=== PATIENT | female | born 1990 | race Caucasian/White ===

== ENCOUNTER 2020-09-13 09:48 | Observation (INO) ==
--- NOTE | 2020-09-05 13:05 | PAT Medication Instructions ---
Medication Instructions Date of Service September 05, 2020 Home Medications fluoxetine 20 mg PO QPM cholecalciferol (vitamin D3) [Vitamin D3] 2,000 unit PO Q2D cyanocobalamin (vitamin B-12) [Vitamin B-12] 1,000 mcg PO Q2D lamotrigine 200 mg PO QPM etonogestrel 68 mg subdermal implant 1 implant SUBDERMAL UD folic acid 1 mg tablet 1 mg PO QPM Continue as directed etonogestrel 68 mg subdermal implant 1 implant SUBDERMAL UD DO NOT take the morning of surgery cholecalciferol (vitamin D3) [Vitamin D3] 2,000 unit PO Q2D cyanocobalamin (vitamin B-12) [Vitamin B-12] 1,000 mcg PO Q2D Take evening before surgery fluoxetine 20 mg PO QPM lamotrigine 200 mg PO QPM folic acid 1 mg tablet 1 mg PO QPM NOTHING TO EAT OR DRINK AFTER MIDNIGHT. Other Notes If you have any questions please call us at [phone] or [phone] or [phone] or [phone]
--- NOTE | 2020-09-06 12:21 | Anesthesiology Consultation ---
Date of Service September 06, 2020 Assessment & Plan (1) Encounter for pre-operative examination: COVID Status: As of 09/06 assessment, patient denies travel to endemic area, known exposure/sick contacts, or symptoms of COVID19. Patient advised to adhere to social distancing guidelines, wear a mask in public and avoid large crowds or unnecessary travel in the 2 weeks leading up to surgery. Preoperative COVID19 testing to be completed prior to surgery per surgeon's arrangements. Patient encouraged to be extra cautious/conscientious with COVID precautions between COVID testing and surgery. HCG AM DOS Chart Review Chart Review: Acceptable Risk for Surgery and Patient seen in Pre Admission Testing Teaching & Discussion Instructed NPO after midnight before surgery, except medications with 15 cc of water. Medication instructions provided according to the PAT guidelines. History Surgery Operation Date: 09/13/20 10:45 Proposed Procedures p Laparoscopic Splenectomy, Possible Open Splenectomy - Andrew Ang DO, FACS Height/Weight Height: 5 ft 6 in Weight: 154.5 kg Allergies Allergy/AdvReac Type Severity Reaction Status Date / Time No Known Drug Allergies Allergy Unknown . Verified 08/30/20 15:44 Medications Home Medications Medication Instructions Recorded Confirmed Last Taken fluoxetine 20 mg PO QPM 01/15/18 08/30/20 07/12/20 cholecalciferol (vitamin D3) 2,000 unit PO Q2D 07/13/20 08/30/20 07/12/20 [Vitamin D3] cyanocobalamin (vitamin B-12) 1,000 mcg PO Q2D 07/13/20 08/30/20 07/12/20 [Vitamin B-12] lamotrigine 200 mg PO QPM 07/13/20 08/30/20 07/12/20 etonogestrel 68 mg subdermal 1 implant SUBDERMAL UD 08/17/20 08/30/20 Unknown implant folic acid 1 mg tablet 1 mg PO QPM 08/17/20 08/30/20 Unknown Past Medical History Medical History Anemia Anxiety and depression Enlarged liver Hereditary spherocytosis Personality disorder Restless leg syndrome Splenomegaly Temporomandibular joint disorder No locking, but gets sore and painful to fully open jaw when inflamed. Exercise / Class Metabolic Activity III < 4 Walking/Shop/Light housework (Denies SOB or CP with ambulation on one level, mild MORENO with 1 FOS) Past Family History Family History Grandfather Heart disease Hypertension Grandmother Diabetes Heart disease Hypertension Grandfather (Maternal) Family history of diabetes mellitus Grandmother (Maternal) Family history of diabetes mellitus Other No family history of adverse response to anesthesia Past Surgical History Surgical History History of appendectomy History of cholecystectomy History of ERCP History of myringotomy Past Anesthesia History No Hx of Anesthesia Complications and No Family Hx of Anesthesia Complications History of PONV No Hx of PONV and No Hx of Motion Sickness Social History Smoking Status: Never smoker Do You Dip or Chew Tobacco: No Hx Alcohol Use: Yes Alcohol type: beer alcohol intake frequency: a few times a month Hx Substance Use: No substance use type: does not use Review of Systems Pt denies any recent chest pain, shortness of breath, palpitations, cough, fever, URI, or uncontrolled acid reflux. Physical Exam Vital Signs BP: 129/75 P: 83bpm SPO2: 100% RA T: 98.7 F R: 12 Constitutional + morbidly obese ENMT Mouth: no dental restorations, no chipped teeth and no loose teeth Thyromental Distance: > or= 3.5 Finger Breadths Mallampati Class: II Neck normal visual inspection; neck extension not limited Respiratory normal respiratory effort, lungs clear to auscultation Cardiovascular RRR, no murmur, no edema Lab Results Anesthesia Preop Results Results Anesthesia Widget: WBC 10.16 K/uL (4.8-10.8) 09/06/20 Hgb 11.2 g/dL (12.0-16.0) L 09/06/20 Hct 30.6 % (37-47) L 09/06/20 Plt 203 K/uL (130-400) 09/06/20 Na 137 mmol/L (136-145) 09/06/20 K 4.1 mmol/L (3.5-5.1) 09/06/20 Cl 108 mmol/L (98-107) H 09/06/20 CO2 22 mmol/L (21-32) 09/06/20 BUN 10 mg/dl (7-18) 09/06/20 Creat 0.75 mg/dl (0.6-1.2) 09/06/20 Glucose Level 90 mg/dl (70-99) 09/06/20 PT 11.3 Seconds (9.0-12.0) 08/09/20 PTT 31.0 Seconds (21.0-31.0) 08/09/20 INR 1.1 (0.9-1.1) 08/09/20 Blood Type A Negative 09/06/20 Antibody Screen NEGATIVE 09/06/20 Testing Electrocardiogram Date: 09/06/20 Findings: + NSR @ (76bpm) *unconfirmed
[~2020-09-13 09:48] MED LIST: LR 15ML/HR IV SCH
[2020-09-13] MEDS ORDERED: fentaNYL citrate 100 MCG/2 ML VIAL ONE ×2 (10:42→12:33)
[2020-09-13] MEDS ORDERED: MIDAZOLAM HCL 1 MG/ML 2ML VIAL ONE (10:42)
--- NOTE | 2020-09-13 11:17 | History & Physical Bridge Note ---
Date of Service September 13, 2020 History & Physical Bridge Note I have examined the patient, reviewed the History & Physical and in the interval since the performance of the History & Physical I have noted the following changes of clinical significance: no changes noted
[2020-09-13] MEDS ORDERED: BUPIVACAINE LIPOSOME 1.3% 266 MG/20 ML VIAL ONE (11:20)
[2020-09-13] MEDS ORDERED: BUPIVACAINE 0.5 % 5 MG/1 ML MPF 30ML VIAL ONE (11:20)
[2020-09-13] MEDS ORDERED: DEXAMETHASONE SOD INJ 4 MG/ML VIAL ONE (12:13)
[2020-09-13] MEDS ORDERED: PROPOFOL IV EMULSION 10 MG/ML 20 ML VIAL IV ONE (12:13)
[2020-09-13] MEDS ORDERED: ONDANSETRON INJ 2 MG/ML 2 ML VIAL ONE (12:13)
[2020-09-13] MEDS ORDERED: LARYING-O-JET KIT (LTA) ONE (12:13)
[2020-09-13] MEDS ORDERED: ROCURONIUM BROMIDE 10 MG/ML 5 ML VIAL IV ONE ×3 (12:13→13:27)
[2020-09-13] MEDS ORDERED: LIDOCAINE 2% 2 ML VIAL/AMP(20MG/ML) INFIL ONE (12:13)
[2020-09-13] MEDS ORDERED: SUCCINYLCHOLINE 100MG/5ML SYR IV ONE (12:13)
[2020-09-13] MEDS ORDERED: HYDROmorphone INJ 2 MG/ML SYR/VIAL ONE (13:42)
--- NOTE | 2020-09-13 15:27 | Operative Report ---
PG Post Operative Report Pre & Post Diagnosis Operation Date: 09/13/20 11:35 Pre-Op Diagnosis: Hereditary Spherocytosis, Splenomegaly Post-Op Diagnosis: Hereditary Spherocytosis, Splenomegaly I identified the patient and participated in the time-out.: Yes Procedure Operation Date: 09/13/20 11:35 Actual Procedures p Laparoscopic Splenectomy - Andrew Ang DO, BRITTNEY Surgeon Andrew Ang DO, FACS Masking Machine Operator Sean Larson Estimated Blood Loss 25 Findings Consistent with Post-Op Diagnosis Significant splenomegaly. Splenic artery and several branches of the splenic vein controlled with 30 mm rosenbaum loaded Endo JAVIER's. Spleen placed a 15 mm Endo Catch bag and fill the entire bag. Morselized and sent to pathology. Fascia closed with interrupted 0 PDS [id number] sutures. CADY drain left in splenic bed. Exparel injected in fascia conclusion of case. Good hemostasis. Specimens Spleen Drains 10 mm CADY drain in splenic bed Anesthesia Type General Complications none Disposition Accompanied Patient To Recovery: No Disposition: Recovery Room Indications 30-year-old obese female with hereditary spherocytosis and anemia with symptomatic splenomegaly, desires splenectomy. She had consultation with hematology who agreed with the plan. She had her immunizations for meningococcus, pneumococcus, and Haemophilus influenza B several weeks prior to the procedure. Plan for laparoscopic splenectomy, possible open. The risks of the procedure were discussed, all questions were answered, and the patient agreed to proceed with surgery as planned. Description of Procedure The patient was properly identified, consented, and taken to the operating room where she was placed in the supine position. General endotracheal anesthesia was induced. A bump was placed under the patient's left side and the bed was flexed. SCDs, a Gordon, and a safety belt were placed. Preoperative antibiotics were administered. The patient's abdomen was prepped and draped in the standard sterile fashion. A surgical timeout was performed and all parties were in agreement that this was the correct patient and procedure to be performed and we continued as planned. An incision was made superior and to the right of the umbilicus overlying the rectus muscle and the Veress needle was inserted. Saline drop test confirmed entry into the peritoneum. The abdomen was insufflated with carbon dioxide which the patient tolerated without incident. The abdomen was then entered using the Optiview technique and a 5 mm trocar. The laparoscope was inserted and no damage from initial trocar or Veress needle placement was noted, no gross abnormalities were noted within the 4 quadrants of the abdomen. 5 mm ports were then placed in the right subcostal position, the left periumbilical region, and the left subcostal position. The left periumbilical port was later replaced with a 15 mm port to allow for stapling and removal of the spleen. The patient was placed in reverse Trendelenburg position and rotated towards the right. An additional 5 mm port was placed in the left upper quadrant to aid in retraction due to the size of the spleen and the patient's body habitus. There was significant splenomegaly with the spleen extending down almost to the left lower quadrant and almost across to the midline. The omentum was retracted inferiorly exposing the entirety spleen. We began by taking down the splenocolic ligament using the Sonicision. We then used the Sonicision to go along the greater curve of the stomach taking down the short gastric vessels. The splenic artery was identified. The splenic artery was circumferentially dissected. A 30 mm rosenbaum loaded endoscopic JAVIER stapler was then used to divide the splenic artery. Hemostasis appeared excellent. We then continued our dissection and splenic vein was identified and was circumferentially dissected. The splenic vein was divided using the 30 mm rosenbaum loaded endoscopic JAVIER stapler. There were 2-3 large branches of the splenic vein that were encountered, circumferentially dissected, and divided with 30 mm rosenbaum loaded Endo JAVIER stapler. Hemostasis appeared to be excellent. We then proceeded to take down the remaining phrenosplenic and spenorenal ligaments. The spleen was then completely free and hemostasis was excellent. The left upper quadrant was irrigated. The tail of the pancreas was identified and appeared to be intact. The spleen was then placed in the 15 mm bag intact. The spleen filled the entirety of the 50 mm bag. The fascial incision need to be extended in order to even get the bag and spleen up to the incision. The spleen was then morselized using large sponge clamps. The incision was protected with blue towels during this portion of the procedure. The spleen was removed. It was sent to pathology for specimen. The 15 mm port site fascia was then closed using 0 PDS [id number] suture. We then reentered laparoscopically to assess for hemostasis which appeared to be excellent. A 10 mm flat CADY drain in the left upper quadrant in the splenic bed and exited through the left subcostal 5 mm port site. This was secured into place using a 2-0 nylon suture. The fascia was injected with Exparel mixed with half percent Marcaine. Laparoscopy was ceased and the abdomen was allowed to collapse. 5mm ports were removed under direct visualization. The wound was irrigated, and the skin of the extraction site was closed with interrupted 3-0 Vicryl deep dermal sutures followed by 4-0 Monocryl running subcuticular suture. The skin of all remaining ports was closed with 4-0 Monocryl subcuticular sutures. Dermabond was placed over the wounds. The patient was extubated in the operating room and taken to the PACU where she recovered without apparent incident. All sponge, instrument and needle counts were correct at the conclusion of the procedure. The patient tolerated the procedure well. The physician's equity sales assistant was present and scrubbed for the entirety of the case and was essential in positioning the patient, prepping and draping, retraction and exposure, driving the laparoscope, removal of the spleen, closure of the incisions, and placement of the dressings. I attest to the content of the Intraoperative Record and any orders documented therein. Any exceptions are noted below.
[2020-09-13] MEDS ORDERED: PROMETHAZINE HCL 12.5 MG in SODIUM CHLORIDE 0.9% 50 ML IV PRN (15:53)
[2020-09-13] MEDS ORDERED: ePHEDrine sulfate 50 MG/ML AMP IV PRN (15:53)
[2020-09-13] MEDS ORDERED: FLUMAZENIL 0.1 MG/1 ML 10 ML VIAL IV PRN (15:53)
[2020-09-13] MEDS ORDERED: HYDROmorphone INJ 1 MG/ML SYRINGE IV PRN (15:53)
[2020-09-13] MEDS ORDERED: LABETALOL HCL IV 5 MG/ML 20ML IV PRN (15:53)
[2020-09-13] MEDS ORDERED: NALOXONE HCL 0.4 MG/1 ML VIAL/CARP IV PRN (15:53)
[2020-09-13] MEDS ORDERED: ATROPINE SULFATE 0.1 MG/ML 10ML SYR IV PRN (15:53)
[2020-09-13] MEDS ORDERED: fentaNYL citrate 100 MCG/2 ML VIAL IV PRN (15:53)
[2020-09-13] MEDS ORDERED: PROMETHAZINE HCL 12.5 MG in SODIUM CHLORIDE 0.9% 50 ML IV STA (15:54)
--- NOTE | 2020-09-13 16:34 | Anesthesiology Progress Note ---
Date of Service September 13, 2020 Anesthesia Post Procedure Vital Signs Vital Signs: Temp Pulse Pulse Resp BP Pulse Ox 09/13/20 16:30 36.9 C 77 13 166/86 H 100 09/13/20 16:20 36.9 C 79 12 166/87 H 100 09/13/20 16:10 36.9 C 77 14 160/87 H 100 09/13/20 16:00 85 15 174/92 H 98 09/13/20 15:50 14 164/90 H 99 09/13/20 15:40 88 8 L 156/88 H 99 09/13/20 15:30 37.8 C H 97 H 12 138/92 95 09/13/20 10:07 37.3 C 90 20 160/83 H 97 Pain Intensity Right Abdomen: Pain Intensity: 2 Transfer of Care Handoff Completed per policy Notes Mental Status: alert / awake / arousable Patient Amnestic to Procedure: Yes Nausea / Vomiting: adequately controlled Pain: adequately controlled Airway Patency, RR, SpO2: stable & adequate BP & HR: stable & adequate Hydration State: stable & adequate Anesthetic Complications: no major complications apparent
[2020-09-13] MEDS ORDERED: MoRPHine SULFATE 4 MG/ML 1 ML CARP\\VIAL IV PRN (16:58)
[2020-09-13] MEDS ORDERED: MoRPHine SULFATE 2 MG/ML CARP IV PRN (16:58)
[2020-09-13] MEDS ORDERED: oxyCODONE/ACETAMINOPHEN 5mg/325mg TAB PO PRN ×2 (16:58)
[2020-09-13] MEDS ORDERED: ONDANSETRON INJ 2 MG/ML 2 ML VIAL IV PRN (16:58)
[2020-09-13 17:24] LABS: Hematocrit (blood only) 34.4 % (37-47); Mean Corpuscular Hemoglobin 33.8 pg (25-34); Mean Corpuscular Hgb Conc 34.9 g/dL (32-36); Mean Corpuscular Volume 96.9 fL (80-100); Mean Platelet Volume 8.2 fL (7.4-10.4); Platelet Count 328 K/uL (130-400); RDW Coefficient of Variation 17.7 % (11.5-14.5); RDW Standard Deviation 61.7 fL (36.4-46.3); Red Blood Count 3.55 M/uL (4.2-5.4); White Blood Count 32.68 K/uL (4.8-10.8)
[2020-09-13] MEDS ORDERED: ETONOGESTREL 68 MG IMPLANT SQ SCH (17:30)
[2020-09-13 17:53] LABS: Basophils # (auto) 0.01 K/uL (0-0.2); Immature Granulocytes # (auto) 0.28 K/uL (0.00-0.02); Immature Granulocytes % (auto) 0.9 %; Lymphocytes # (auto) 0.46 K/uL (1.2-3.4); Lymphocytes % (auto) 1.4 %; Monocytes # (auto) 0.21 K/uL (0.11-0.59); Monocytes % (auto) 0.6 %; Neutrophils # (auto) 31.72 K/uL (1.4-6.5); Neutrophils % (auto) 97.1 %; Polychromasia 1+
[2020-09-13] MEDS: LACTATED RINGER'S 1,000 ML IV SCH (18:15)
[2020-09-13] MEDS: ceFAZolin 2000MG 2,000 MG/15 ML SYR IV SCH (20:26)
[2020-09-13] MEDS ORDERED: lamoTRIgine 100 MG TAB PO SCH (21:00)
[2020-09-13] MEDS ORDERED: FLUoxetine HCL 20 MG CAP PO SCH (21:00)
[2020-09-13] MEDS ORDERED: FOLIC ACID 1 MG TAB PO SCH (21:00)
[2020-09-14] MEDS: ceFAZolin 2000MG 2,000 MG/15 ML SYR IV SCH (04:21)
[2020-09-14] MEDS: LACTATED RINGER'S 1,000 ML IV SCH (05:57)
[2020-09-14 06:23] LABS: Hematocrit (blood only) 31.4 % (37-47); Hemoglobin 10.8 g/dL (12.0-16.0); Immature Granulocytes # (auto) 0.06 K/uL (0.00-0.02); Immature Granulocytes % (auto) 0.4 %; Lymphocytes # (auto) 1.28 K/uL (1.2-3.4); Lymphocytes % (auto) 7.7 %; Mean Corpuscular Hemoglobin 33.4 pg (25-34); Mean Corpuscular Hgb Conc 34.4 g/dL (32-36); Mean Corpuscular Volume 97.2 fL (80-100); Mean Platelet Volume 8.9 fL (7.4-10.4); Monocytes # (auto) 1.13 K/uL (0.11-0.59); Monocytes % (auto) 6.8 %; Neutrophils # (auto) 14.13 K/uL (1.4-6.5); Neutrophils % (auto) 85.1 %; Platelet Count 336 K/uL (130-400); RDW Coefficient of Variation 16.5 % (11.5-14.5); RDW Standard Deviation 57.6 fL (36.4-46.3); Red Blood Count 3.23 M/uL (4.2-5.4)
[2020-09-14 07:05] LABS: BUN Creatinine Ratio 11.7 (10-20); Calcium 8.4 mg/dl (8.5-10.1); Creatinine Clr Calc Pharmacy 155.5 ml/min; Est GFR (Non-African American) 97.5 ml/min; Potassium 3.9 mmol/L (3.5-5.1)
--- NOTE | 2020-09-14 07:53 | Surgery Progress Note ---
Date of Service September 14, 2020 Assessment & Plan (1) Splenomegaly: POD 1 lap splenectomy H&H down 1 g-expected advance diet await drain amylase d/c later today Admission and Anticipated Discharge Date Admission Date: September 13, 2020 Supervising Physician Co-Signing Physician Notes Patient seen and examined, labs reviewed, agree with above. 30 y/o female POD#1 laparoscopic splenectomy for hereditary spherocytosis and splenomegaly. Doing well, pain controlled, tolerated diet, ambulating. On exam AFVSS, nad. abd soft, appropriately ttp, echymosis at extraction site but no infection. Drain with SS drainage. hct stable, drain amylase 805. Discharge to home today, keep drain in place, repeat cbc, serum and drain amylase next week. Activity restrictions and wound care and drain instructions given, return precautions reviewed. Subjective some incision pain, tolerating liquids Physical Exam Gastrointestinal (Abdomen): Inspection/Auscultation: + abdominal surgical incision (dry) Percussion/Palpation: abdomen soft CADY 45 cc overnight, serosang Results & Data ([facility]) Vital Signs (Past 12 Hours) Vital Signs Temp Pulse Resp BP Pulse Ox 09/14/20 06:42 37.0 C 79 16 139/80 97 09/14/20 02:51 37.1 C 82 18 149/87 H 97 09/13/20 23:38 36.9 C 84 16 145/90 H 100 PG Care Time/CCT Total # of Minutes Spent Total Time Spent with Patient: Total time spent is greater than 50% in coordination of care (as documented) at patient's floor/unit and/or counseling patient: Coding Level of Care Code None Diagnoses Splenomegaly R16.1
--- NOTE | 2020-09-18 14:09 | Discharge Summary ---
Date of Service September 18, 2020 Principal Diagnosis Splenomegaly, Hereditary Spherocytosis Discharge Exam Constitutional WD/WN, vitals as above Gastrointestinal (Abdomen) Inspection/Auscultation: + abdominal wall ecchymosis, + abdominal surgical incision (dry) and + abdominal surgical drain present Percussion/Palpation: abdomen soft Discharge Data Allergies Allergy/AdvReac Type Severity Reaction Status Date / Time No Known Drug Allergies Allergy Unknown . Verified 09/13/20 10:03 Procedures Performed Operation Date: 09/13/20 11:35 Actual Procedures p Laparoscopic Splenectomy - Andrew Ang DO, FACS Hospital Course (1) Hereditary spherocytosis: 30 y/o female with hereditary spherocytosis and splenomegaly was taken to the operating room for laparoscopic splenectomy and transferred to the surgical floor for observation. In the morning she was able to advance diet and tolerate oral analgesics. H&H remained stable. Peritoneal amylase was 803 from CADY drain. She was stable for discharge home with the drain and repeat amylase next week. Total Time Total Time Spent Total Time Spent (In Minutes): 10 Discharge Plan Discharge Items Patient Disposition: Home - Self-Care Reason For Visit: Hereditary Spherocytosis, Splenomegaly Discharge Diagnosis: splenectomy Activity: Per Instructions section Lifting: No more than 10 pounds Bathing Comment: may shower; no soaking in tubs/pools Exercise/Sports: Wait until after follow-up appointment Driving/Machine Use: no driving while taking narcotics for pain Non-emergency contact: Surgeon Call non-emergency contact if: you have any medication questions, your symptoms worsen, your pain is not controlled, your pain is worsening, your pain is concerning for you, you have a fever, your temperature is above 101.5, your wound has increased redness, your wound has increased drainage and your wound pain has increased Follow-up/Referrals: Andrew Ang DO, FACS [Physician] - 09/25/20 10:30 am (Please call to schedule follow up in clinic within 1-2 weeks) Odalis Pierre PA-C [Primary Care Provider] - Diet: Regular Ambulatory Orders: Amylase (Routine) Timeframe: 1 Week Location: Determined by Patient Ordered By: Esmer Nelson Complete Blood Count with Diff (Routine) Timeframe: 1 Week Location: Determined by Patient Ordered By: Esmer Nelson Amylase Peritoneal Fluid (Routine) Timeframe: 1 Week Location: Determined by Patient Ordered By: Esmer Andersen Attending Provider Instructions: You will be discharged with your surgical drain in place. Please care for your drain as instructed prior to discharge from the hospital. Empty drain 2-3x/daily and record output. You may change your dressing around your drain daily with dry 4x4 gauze and medical tape. Please go to the lab to have a CBC, serum amylase, and drain amylase drawn within 1 week in one of our outpatient labs. Pending Studies at Discharge: Yes Stand-Alone Forms: My [facility] Medications and DC Order Prescriptions: New oxycodone-acetaminophen [Percocet] 5-325 mg tablet 1 - 2 tab PO .q4-6h PRN (Reason: pain, for initial therapy, max 6 tabs per day) Qty: 15 RF: 0 Continued folic acid 1 mg tablet 1 mg PO QPM RF: 0 Nexplanon 68 mg implant 1 implant subdermal UD RF: 0 fluoxetine [Prozac] 20 mg Capsule 20 mg PO QPM RF: 0 lamotrigine [Lamictal] 200 mg tablet 200 mg PO QPM RF: 0 cyanocobalamin (vitamin B-12) [Vitamin B-12] 1,000 mcg Tablet 1,000 mcg PO Q2D RF: 0 cholecalciferol (vitamin D3) [Vitamin D3] 50 mcg (2,000 unit) Tablet 2,000 unit PO Q2D RF: 0 Discharge Orders: Discharge Order (Routine); Ordered 09/14/20 Ordered By: Esmer Nelson Admission Data Admit Date/Time: 09/13/20 15:18 Attending Provider: Andrew Ang Admit Provider: Esmer Nelson Primary Care Provider: Odalis Pierre Other Interventions: Discharge Summary Assessment (RN) Last Done: 09/14/20 10:30 Coding Level of Care Code D/C Day Management <30 mins Diagnoses Hereditary spherocytosis D58.0
== END 2020-09-14 11:30 | disposition home or self-care (01) ==
LOC: 3W 09:48 → ASU 09:48